=== PATIENT | female | born 1960 | race Caucasian/White ===

== ENCOUNTER 2019-04-22 07:03 | Emergency (ER) | payer OTHER ==
[2019-04-22 07:10] VITALS: BP 148/89
[2019-04-22] MEDS ORDERED: PROPARACAINE 0.5% OPHTH DROPS 15 ML EACHEYE STA (07:21)
--- NOTE | 2019-04-22 07:32 | ED Physician Documentation ---
PD HPI SKIN - Stated complaint Stated Complaint: FACE RASH/TINGLING - Chief complaint Chief Complaint: Wound - History obtained from History obtained from: Patient - History of Present Illness Timing - onset: Yesterday Timing - duration: Hours (24) Timing - details: Gradual onset Pain level max: 3 Pain level now: 3 Location: Scalp, Face Quality / character: Other (tingling) Improved by: Other (nothing) Worsened by (comment): COMMENT (nothing) Associated symptoms: No: Fever, Myalgias, Joint pain, Headache, Facial swelling, Dyspnea, Abd pain, N/V/D, Urinary sx Contributing factors: No: Exposed to medication, Exposed to food, Exposed to soap / lotion, Exposed to Poison gil/oak, Insect bite /sting, Recent illness Similar symptoms before: Has not had sx before Recently seen: Not recently seen Review of Systems Constitutional: denies: Fever, Chills Eyes: denies: Decreased vision, Photophobia Ears: denies: Loss of hearing, Ear pain Nose: denies: Rhinorrhea / runny nose, Congestion Throat: denies: Sore throat Musculoskeletal: denies: Neck pain, Back pain PD PAST MEDICAL HISTORY - Past Medical History Cardiovascular: Hypertension, High cholesterol Respiratory: None GI: Other : None HEENT: None Psych: None Musculoskeletal: None - Past Surgical History General: Cholecystectomy /[employer]: section HEENT: Other - Present Medications Home Medications: Ambulatory Orders Medication Instructions Recorded Confirmed Loratadine [Claritin] 10 mg PO DAILY 05/15/14 05/30/14 Simvastatin 20 mg PO DAILY 05/15/14 05/30/14 hydroCHLOROthiazide 25 mg PO DAILY 05/15/14 05/29/14 [Hydrochlorothiazide] Aspirin [Aspirin EC] 81 mg PO DAILY 04/22/19 04/22/19 Valacyclovir HCl [Valtrex] 1,000 mg PO TID #21 tablet 04/22/19 - Allergies Allergies/Adverse Reactions: Allergies Allergy/AdvReac Type Severity Reaction Status Date / Time No Known Drug Allergies Allergy Verified 04/22/19 07:10 PD ED PE NORMAL - Vitals Vital signs reviewed: Yes - General General: Alert and oriented X 3, No acute distress, Well developed/nourished - HEENT HEENT: Moist mucous membranes - Neck Neck: Supple, no meningeal sign - Cardiac Cardiac: RRR - Respiratory Respiratory: No respiratory distress, Clear bilaterally - Derm Derm: Warm and dry, Other (Tingling on the scalp on the right half. There is a slight rash in the V1 distribution. No fluorescein uptake. No dendrites on the cornea.) - Neuro Neuro: Alert and oriented X 3 - Psych Psych: Normal mood, Normal affect Results - Vitals Vitals: Vital Signs - 24 hr 04/22/19 07:07 Temperature 36.9 C Heart Rate 76 Respiratory 18 Rate Blood Pressure 148/89 H O2 Saturation 100 Oxygen O2 Source Room air PD MEDICAL DECISION MAKING - ED course Complexity details: considered differential, d/w patient ED course: 58-year-old female with herpes zoster. No ocular/ophthalmic involvement. Will start on Valtrex. We will follow-up with her doctor for further care. Patient counseled regarding signs and symptoms for which I believe and urgent re- evaluation would be necessary. Patient with good understanding of and agreement to plan and is comfortable going home at this time This document was made in part using voice recognition software. While efforts are made to proofread this document, sound alike and grammatical errors may occur. Departure - Departure Disposition: 01 Home, Self Care Clinical Impression: Shingles outbreak Qualifiers: Herpes zoster complications: without complications Qualified Code(s): B02.9 - Zoster without complications Condition: Good Health Concerns: rash Plan of Treatment: valtrex Care Goals: improve rash Assessment: unchanged Instructions: ED Shingles Follow-Up: Tawny Poole ARNP [Primary Care Provider] - Within 1 week Prescriptions: Valacyclovir HCl [Valtrex] 1,000 mg PO TID #21 tablet Comments: Take all medication until gone. Return if you worsen. Follow-up with your doctor for further evaluation and care.
== END 2019-04-22 07:45 | disposition home or self-care (01) ==
LOC: ED 07:03
DX: B02.9 Zoster without complications (principal); I10 Essential (primary) hypertension
CPT/HCPCS: 99283; J3490

== ENCOUNTER 2021-06-18 09:09 | Outpatient (CLI) | payer OTHER ==
--- NOTE | 2021-07-02 13:21 | Mammography Report ---
BILATERAL DIGITAL SCREENING MAMMOGRAM 3D/2D: 06/18/2021 CLINICAL: Routine screening. Family history of breast cancer. Comparison is made to exams dated: 10/09/2019 mammogram, 08/11/2018 mammogram, and 08/04/2017 mammogr am - [facility] [place]. There are scattered fibroglandular elements in both breasts. No significant masses, calcifications, or other findings are seen in either breast. There has been no significant interval change. IMPRESSION: NEGATIVE There is no mammographic evidence of malignancy. A 1 year screening mammogram is recommended. This exam was interpreted at Station ID: [id number]. NOTE: For mammograms, a report in lay terms will be sent to the patient. Approximately 15% of breast malignancies will not be visualized mammographically. In the management of a palpable breast mass, a negative mammogram must not discourage biopsy of a clinically suspicious lesion. Electronically Signed By: Elena morataya/mark:07/01/2021 17:11:49 ACR BI-RADS Category 1: Negative 3341F PARENCHYMAL PATTERN: (A) - The breast(s) demonstrate(s) scattered fibroglandular densities. BI-RADS CATEGORY: (1) - 1 RECOMMENDATION: (ANNUAL) - Recommend routine annual screening mammography. [id number] 1 year screening LATERALITY: (B)
== END 2021-06-18 09:10 | disposition home or self-care (01) ==
LOC: DI.N 09:09
DX: Z12.31 Encounter for screening mammogram for malignant neoplasm of breast (principal); Z80.3 Family history of malignant neoplasm of breast

== ENCOUNTER 2023-09-06 08:36 | Outpatient (CLI) | payer OTHER | END 2023-09-06 08:37 | disposition EMS.NT | LOC: EMS 08:36 | DX: S81.012A Laceration without foreign body, left knee, initial encounter (principal); S50.311A Abrasion of right elbow, initial encounter; V03.10XA Pedestrian on foot injured in collision with car, pick-up truck or van in traffic accident, initial encounter; Y93.K1 Activity, walking an animal; Y92.414 Local residential or business street as the place of occurrence of the external cause ==

== ENCOUNTER 2023-09-06 12:12 | Outpatient (CLI) | payer OTHER ==
--- NOTE | 2023-09-06 15:58 | XRAY Report ---
PROCEDURE: Knee 3 View LT INDICATIONS: CONTUSION OF LEFT KNEE, INITIAL ENCOUNTER TECHNIQUE: 3 views of the knee(s) were acquired. COMPARISON: None. FINDINGS: Bones: No fractures or dislocations. No suspicious bony lesions. Mild tricompartmental osteoarthr itis with osseous hypertrophy. Soft tissues: No knee joint effusion. No suspicious soft tissue calcifications or masses. IMPRESSION: No fracture. No acute osseous lesion. If symptoms and/or clinical concern for pathology persists, fur ther assessment with repeat plain film radiographs (7-10 days) or advanced imaging (CT, MR, bone scan ) should be considered. Reviewed by: Guera Corrales MD, PhD on 09/06/2023 3:57 PM PST Approved by: Guera Corrales MD, PhD on 09/06/2023 3:57 PM PST Station ID: [id number]
--- NOTE | 2023-09-06 16:00 | XRAY Report ---
PROCEDURE: Elbow 3 View RT INDICATIONS: CONTUSION OF LEFT KNEE, INITIAL ENCOUNTER TECHNIQUE: 3 views of the elbow were acquired. COMPARISON: None. FINDINGS: Bones: No fractures or dislocations. No suspicious bony lesions. Soft tissues: No effusion. No suspicious soft tissue calcifications or masses. IMPRESSION: No fracture. No acute osseous lesion. If symptoms and/or clinical concern for pathology persists, fur ther assessment with repeat plain film radiographs (7-10 days) or advanced imaging (CT, MR, bone scan ) should be considered. Reviewed by: Guera Corrales MD, PhD on 09/06/2023 3:58 PM PST Approved by: Guera Corrales MD, PhD on 09/06/2023 3:58 PM PST Station ID: [id number]
== END 2023-09-06 12:13 | disposition home or self-care (01) ==
LOC: DI 12:12
PROVIDERS: ATTEND Family Medicine
DX: S80.02XA Contusion of left knee, initial encounter (principal); S50.01XA Contusion of right elbow, initial encounter

== ENCOUNTER 2023-11-07 13:20 | Outpatient (CLI) | payer OTHER ==
--- NOTE | 2023-11-07 20:51 | MRI Report ---
PROCEDURE: KNEE WO - LT INDICATIONS: PAIN IN LEFT KNEE TECHNIQUE: Noncontrast sagittal PD fast spin echo and T2 fast spin echo with fat saturation, sagittal 3-D spoile d GE with fat saturation; coronal T1 spin echo and PD fast spin echo with fat saturation, and axial P D fast spin echo with fat saturation through the knee. COMPARISON: Left knee radiographs 09/06/2023 FINDINGS: Image quality: Excellent. Anterior cruciate ligament: Intact. Posterior cruciate ligament: Intact. Medial collateral ligament: Intact. Lateral collateral ligament: Intact. Medial meniscus: Mild intrasubstance degeneration which does not meet imaging criteria for a menisca l tear. Lateral meniscus: Mild intrasubstance degeneration. Medial and lateral tendons: The semimembranosus tendon insertions appear intact. Visualized portion s of the pes anserinus tendons appear normal. The popliteus tendon appears intact. Iliotibial band appears normal. Anterior structures: The patellar tendon and the distal quadriceps tendon appear intact. No patellar subluxation. No femoral trochlear dysplasia or ventral trochlear prominence. No edema in the infra patellar fat pad. Bones: Mild osseous edema is seen at the central weightbearing portion of the lateral tibial plateau with suspected nondepressed or incomplete fracture that may involve the lateral tibial plateau artic ular surface. Mild focal hyperintense signal is seen at the anterolateral aspect of the patella. Medial femorotibial cartilage: Mild partial thickness cartilage thinning throughout the weightbearin g portion of the medial femorotibial compartment Lateral femorotibial cartilage: Mild partial thickness cartilage thinning and irregularity in the we ightbearing portion of the compartment with deep cartilage fissuring at the central portion of the la teral tibial plateau. Patellofemoral cartilage: Moderate cartilage irregularity at the median ridge/medial facet of the pa tella. Mild cartilage irregularity and deep fissuring at the trochlear groove. Soft tissues: There is a small joint effusion. There is a small medial popliteal cyst. A small amou nt of fluid is seen tracking along the popliteus tendon sheath. The musculature surrounding the knee is normal in bulk. IMPRESSION: 1.Nondepressed fracture of the lateral tibial plateau, which may be incomplete, with moderate surroun ding osseous edema. 2.Mild focal edema at the anterior lateral aspect of the patella, which is nonspecific but may be rel ated to a mild osseous contusion. Low-grade partial quadriceps avulsion is not excluded, but no displ aced tendon fibers are seen. 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 4.Mild intrasubstance degeneration within the medial and lateral meniscus. No meniscal tear. 5.Cruciate and collateral ligaments are intact. 6.Small joint effusion. Small medial popliteal cyst. Reviewed by: Tico Morales MD on 11/07/2023 8:50 PM PST Approved by: Tico Morales MD on 11/07/2023 8:50 PM PST Station ID: [id number]
== END 2023-11-07 13:21 | disposition home or self-care (01) ==
LOC: DI 13:20
PROVIDERS: ATTEND Family Medicine
DX: S82.142A Displaced bicondylar fracture of left tibia, initial encounter for closed fracture (principal); M94.262 Chondromalacia, left knee; M25.462 Effusion, left knee; M71.22 Synovial cyst of popliteal space [Baker], left knee